=== PATIENT | female | born 1970 | race Caucasian/White ===

== ENCOUNTER 2019-04-03 12:00 | Emergency (ER) | payer OTHER ==
--- NOTE | 2019-04-03 12:15 | PDOC ---
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 Review of systems: Patient has been on a strict diet for weight loss and to control her diabetes. It is likely that she has not had sufficient fluid intake for the last several weeks. No chest pain, shortness of breath, fevers/chills, URI symptoms, sore throat, cough, urinary tract symptoms, visual or focal neurologic symptoms, unsteadiness of gait. 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 HEENT clear Neck supple without bruit mass or nodes Chest clear with full breath sounds bilaterally CV regular without murmur rub or gallop Abdomen soft nontender without mass or organomegaly. No CVAT Neurological intact Impression: Patient symptoms strongly suggest renal colic. Other possibilities, although more remote, are acute right-sided diverticulitis, appendicitis, BEE RAISER disease including ovarian cyst, ovarian torsion, PID Plan: Intravenous hydration, antiemetic, Toradol, CBC and chemistries, and CT. Further evaluation depending on results Past History - Past Medical History Allergies/Adverse Reactions: Allergies Allergy/AdvReac Type Severity Reaction Status Date / Time No Known Allergies Allergy Verified 04/03/19 12:10 Home Medications: Ambulatory Orders Oxycodone HCl/Acetaminophen [Percocet 5-325 mg Tablet] 1 - 2 tab PO Q4H PRN #20 tablet MDD 8 04/03/19 ED Treatment Course - LABORATORY CBC & Chemistry Diagram: 04/03/19 12:15 04/03/19 12:15 Medical Decision Making - Medical Decision Making 04/03/19 17:01 CBC and chemistries reveal a white count of 12.1, glucose of 127, but otherwise within the normal range Urinalysis shows blood. is negative. CT shows 2 mm stone at the UV junction with obstruction, hydronephrosis. After treatment with fluids, Toradol, morphine, and Zofran, the patient's pain suddenly resolved. It is suspected that she passed her stone, since it was small and in close proximity to the UV junction. She was observed for a long period of time and had no recurrent pain. Discharged with her family to follow up with primary physician, urologist, or return to ER if symptoms recur and is uncontrolled with pain medication. *DC/Admit/Observation/Transfer Diagnosis at time of Disposition: Renal colic - Discharge Dispostion Disposition: HOME Condition at time of disposition: Improved Decision to Admit order: No - Prescriptions Prescriptions: Oxycodone HCl/Acetaminophen [Percocet 5-325 mg Tablet] 1 - 2 tab PO Q4H PRN #20 tablet MDD 8 PRN Reason: Severe Pain - Referrals Referrals: Charles Marlow MD [Staff Physician] - 1 week - Patient Instructions Printed Discharge Instructions: DI for Kidney Stones - Post Discharge Activity
[2019-04-03] MEDS ORDERED: ONDANSETRON 4 MG/2 ML VIAL IVPB ONE ×2 (12:16→12:33)
[2019-04-03] MEDS ORDERED: SODIUM CHLORIDE 1,000 ML IV STA ×2 (12:16→12:57)
[2019-04-03] MEDS ORDERED: KETOROLAC TROMETHAMINE 30 MG/1 ML VIAL IVPUSH ONE ×2 (12:16→12:33)
[2019-04-03 12:17] VITALS: BP 120/80; PULSE 57; TEMP 98; BMI 25.4
[2019-04-03] MEDS ORDERED: ONDANSETRON 4 MG/2 ML VIAL ONE ×2 (12:18→12:35)
[2019-04-03] MEDS ORDERED: KETOROLAC TROMETHAMINE 30 MG/1 ML VIAL ONE (12:18)
[2019-04-03] MEDS ORDERED: KETOROLAC TROMETHAMINE 15 MG/ML VIAL ONE (12:35)
[2019-04-03 12:47] LABS: BASO % 0.2 % (0-2.0); EOS % 0.6 % (0-4.5); HEMATOCRIT 38.5 % (32.4-45.2); HEMOGLOBIN 12.5 GM/dl (10.7-15.3); LYMPH % 8.1 % (8-40); MCH 30.9 pg (25.7-33.7); MCHC 32.5 g/dl (32.0-36.0); MEAN PLT VOLUME 9.9 fl (7.5-11.1); MONO % 3.5 % (3.8-10.2); NEUT % 87.6 % (42.8-82.8); PLATELET COUNT 245 K/MM3 (134-434); RBC 4.06 M/mm3 (3.60-5.2); RDW 13.2 % (11.6-15.6); WHITE BLOOD COUNT 12.1 K/mm3 (4.0-10.8)
[2019-04-03] MEDS ORDERED: morphine CARPU-JECT 2 MG/1 ML DISP.SYRIN IVPUSH ONE ×2 (12:47→14:23)
[2019-04-03] MEDS ORDERED: morphine SULFATE 4 MG/ML VIAL ONE ×2 (12:49→14:44)
[2019-04-03 12:55] LABS: ALBUMIN 4.4 g/dl (3.4-5.0); BILIRUBIN,TOTAL 0.7 mg/dl (0.2-1); CALCIUM 9.3 mg/dl (8.5-10); CREATININE 0.9 mg/dl (0.55-1.3); TOT PROT 7.3 g/dl (6.4-8.2)
[2019-04-03 15:19] LABS: CALCIUM OXALATE CRYSTALS FEW /hpf (NONE SEEN); EPITHELIAL CELLS MODERATE /hpf
[2019-04-03 15:20] LABS: URINE MUCUS 1+
== END 2019-04-03 16:00 | disposition home or self-care (01) ==
LOC: FER 12:00
PROC: 3E033GC Introduction of Other Therapeutic Substance into Peripheral Vein, Percutaneous Approach (ICD-10-PCS; principal; 2019-04-03)
PROC: 3E033NZ Introduction of Analgesics, Hypnotics, Sedatives into Peripheral Vein, Percutaneous Approach (ICD-10-PCS; 2019-04-03)
PROC: 3E0333Z Introduction of Anti-inflammatory into Peripheral Vein, Percutaneous Approach (ICD-10-PCS; 2019-04-03)
PROC: 3E0337Z Introduction of Electrolytic and Water Balance Substance into Peripheral Vein, Percutaneous Approach (ICD-10-PCS; 2019-04-03)
DX: N20.0 Calculus of kidney (principal)
CPT/HCPCS: 36415; 74176-TC; 80053; 81003; 81015; 81025; 85025; 99283-25; J7030